=== PATIENT | male | born 1955 | race Caucasian/White ===

== ENCOUNTER → 2016-08-04 | Outpatient (CLI) | payer BC ==
[2016-08-04 12:59] LABS: Non-African American GFR(MDRD) >60 (>60 ml/min/1.73 sqM)
--- NOTE | 2016-08-04 13:56 | MR ---
EXAMINATION TYPE: MR brain wo/w con DATE OF EXAM: 08/04/2016 1:42 PM COMPARISON: NONE HISTORY: melanoma of lower back CONTRAST: Patient received 15 mL intravenous MultiHance gadolinium contrast. Multiplanar and multispin-echo imaging of the brain was performed . Pre and post contrast enhanced i mages are obtained. The ventricles, basal cisterns and sulci overlying the cerebral convexities are minimally enlarged. There is evidence of mild periventricular white matter ischemic demyelination. Focal globular T2 sig nal abnormality left frontal lobe measuring 7 mm as well as additional smaller focal T2 abnormalities within the left centrum semioval bilaterally. One or 2 small lesions right centrum semiovale and cor seema radiata. The findings are nonspecific and may reflect chronic small vessel ischemic change, seque la of the chronic migraine headaches, Lyme's disease as well as vasculitis. Demyelination is consider ed less likely although not entirely excluded. Remote deep white matter insults are also noted. No acute edema is seen on diffusion weighted imaging. There is no evidence for midline shift or mass effect. Acute intracranial hemorrhage or extra-axial collection is not evident. No enhancing lesions are seen. The paranasal sinuses and mastoid air cells are well-aerated. IMPRESSION: 1. No enhancing lesions are identified. 2. Several scattered T2 lesions are nonspecific.
== END | disposition home or self-care (01) ==
LOC: RADMRIMAIN 12:29
PROVIDERS: ATTEND Internal Medicine
DX: M89.9 Disorder of bone, unspecified (principal); Z85.820 Personal history of malignant melanoma of skin
CPT/HCPCS: 82565; 36415; 70553; A9577

== ENCOUNTER → 2016-08-09 | Outpatient (CLI) | payer BC ==
--- NOTE | 2016-08-10 13:35 | PE ---
Nuclear medicine PET/CT HISTORY: Melanoma Patient received 10.6 mCi F-18 FDG intravenously. Delayed scanning was performed through the whole ju dy. Correlation to brain MRI 04 August 2016 FINDINGS: Head and neck: No evident mass or adenopathy. No suspicious hypermetabolic uptake. CHEST: There is no lung mass. No mediastinal adenopathy. No pleural effusion. At the level of the ski n along the lateral chest margin on the right minimal thickening may be present, mild hypermetabolic uptake measuring approximately SUV 3 of questionable clinical significance, correlate clinically. Abdomen pelvis: No retroperitoneal adenopathy. No evident liver mass. Within the medial aspect of the gluteal soft tissues there is a focal hypermetabolic areas at the level of the scan SUV 10.6, no und erlying corresponding abnormality, correlate clinically. Lower extremities: Unremarkable IMPRESSION: Correlate for possible skin anomalies at the medial aspect of the gluteal soft tissues, a long the skin of the right chest as described. Question whether these foci may be artifactual.
== END | disposition home or self-care (01) ==
LOC: RADPETMAIN 11:14
PROVIDERS: ATTEND Internal Medicine
DX: C43.59 Malignant melanoma of other part of trunk (principal)
CPT/HCPCS: 78816; A9552

== ENCOUNTER 2017-02-06 11:52 | Day surgery (SDC) | payer BC ==
[2017-02-06 12:23] VITALS: RESP 14; TEMP 98.4
[2017-02-06 13:03] VITALS: BP 134/85; PULSE 79
--- NOTE | 2017-02-06 13:46 | US ---
ULTRASOUND GUIDED CORE BIOPSY LEFT GROIN MASS: CLINICAL HISTORY: Left groin mass FINDINGS: The procedure was explained to the patient. The risks, complications, benefits and alternatives were discussed and any questions were answered. Informed consent was obtained. Patient was placed supin e on the ultrasound table and prepped and draped in the usual sterile fashion. Utilizing a 18 gauge needle, two passes were made into the left groin mass. Patient was stable throughout the procedure. Pathology is pending. All elements of maximal barrier technique were utilized. IMPRESSION: 1. Successful ultrasound guided biopsy left groin mass.
== END 2017-02-06 13:14 | disposition home or self-care (01) ==
LOC: RADPROMAIN 11:52
PROVIDERS: ATTEND Internal Medicine Hematology & Oncology
DX: C43.9 Malignant melanoma of skin, unspecified (principal); C79.2 Secondary malignant neoplasm of skin
CPT/HCPCS: 20206; 76942; 88305; 88341; 88342

== ENCOUNTER → 2017-02-07 | Outpatient (CLI) | payer BC ==
--- NOTE | 2017-02-09 07:51 | PE ---
EXAMINATION TYPE: PET CT fusion whole body DATE OF EXAM: 02/07/2017 COMPARISON: Prior PET/CT August 04, 2016 HISTORY: Malignant melanoma progress study after diagnosed surgically July 2016 from nose. TECHNIQUE: Following the intravenous administration of 15.71 mCi of F-18 FDG, whole body images are performed from the top of skull to the feet including toes. Images are reviewed on the computer in t he coronal, axial, and sagittal planes. Reconstructed rotating images are created on independent wor kstation and reviewed on the computer. A CT is performed in conjunction with the PET scan. SCAN: Subsequent Scan FINDINGS: HEAD AND NECK: No suspicious hypermetabolic uptake is seen in the cranial soft tissues of the neck. CHEST, MEDIASTINUM, AND HILAR REGION: No suspicious hypermetabolic uptake is seen in the thorax. ABDOMEN AND PELVIS: There are 2-3 new suspicious subcentimeter hypodense hypermetabolic foci in the l iver, one is faint right hepatic dome anteriorly on axial image 149 ,Second is more suspicious periph dixon right hepatic lobe on axial image 169 Max SUV is 8.06, third is also more suspicious near gallbla dder fossa on image 178 Max SUV is 7.15. There is new abnormal hypermetabolic uptake in left distal external iliac lymph node which is enlarge d in size measuring 3.6 x 2.7 cm on axial image 245 with max SUV of 16.83. There is additional abnorm al lymph node anterior to this measuring 1.7 x 1.2 cm on axial image 241 with max SUV of 14.6. OSSEOUS STRUCTURES: No suspicious hypermetabolic uptake is seen in osseous structures. LOWER EXTREMITIES: There is nonspecific slightly suspicious right groin lymph node measuring 1.0 x 1. 0 cm on axial image 252 with increased hypermetabolic uptake, max SUV is 6.36. Surgical clips at left groin region are redemonstrated. At this level there is new oval hypermetaboli c lesion or adenopathy measuring 2.8 x 2.6 cm on axial image 263 with max SUV of 20.2. Inferior media l to this there is 2.5 x 2.2 cm round hypermetabolic lesion on axial image 280 with max SUV of 19.16s . Remainder of lower extremities show no suspicious hypermetabolic uptake OTHER CT: Coronary artery calcification is present which is noted marker for coronary artery disease . Bilateral PARS defects L5 level are seen with grade 1 anterolisthesis of L5 on S1 moderate disc space narrowing and spurring at this level seen. Remainder thoracic spine shows diffuse spurring. IMPRESSION: Neoplastic recurrence is present with local recurrence left groin at site of prior surgic al change, there is extension into distal left pelvic or external iliac chain adenopathy, there are s uspected early hepatic metastatic lesions as detailed above. Right groin adenopathy or involvement ca nnot be excluded.
== END ==
LOC: RADPETMAIN 10:28
PROVIDERS: ATTEND Internal Medicine Hematology & Oncology
DX: C43.59 Malignant melanoma of other part of trunk (principal)
CPT/HCPCS: 78816; A9552

== ENCOUNTER → 2017-02-11 | Outpatient (CLI) | payer BC ==
--- NOTE | 2017-02-11 09:44 | MR ---
EXAMINATION TYPE: MR brain wo/w con DATE OF EXAM: 02/11/2017 COMPARISON: MR brain dated 08/04/2016. HISTORY: Malignant melanoma TECHNIQUE: Multiplanar, multisequence images of the brain and brainstem is performed without and with IV contras t, utilizing 7.5 mL intravenous Gadavist . FINDINGS: Diffusion weighted images demonstrate no evidence of a recent infarct or other diffusion ab normality. There is no extra-axial fluid collection. The ventricular system and cisternal spaces are normal in size and appearance. The brain volume is age appropriate. Midline structures demonstrate normal morphology. The craniocervical junction appears within normal limits. Enhancing intracranial metastatic lesion is seen with surrounding T2/FLAIR hyperintense vasogenic kiesha ma. The first is located within the posterior right temporal lobe on series 501 image 11, coronal ser ies 603 image 26 and series 602 image 9 measuring 5 x 5 x 4 mm Additional questionable lesion within the anterior right temporal lobe on the same image has no appreciable vasogenic edema and measures 4 mm. Numerous scattered other areas of T2/FLAIR hyperintensity are seen within the subcortical and periven tricular white matter the largest in the left frontal lobe measuring 7 mm unchanged from the exam of 08/04/2016 with no enhancement. No other areas of abnormal enhancement are seen to suggest other sites of intracranial metastasis. The dural venous sinuses appear patent. The visualized sinuses are clear and the globes are intact. Mild mucosal thickening is seen within the ethmoid sinuses. Orbits are un remarkable. IMPRESSION: 1. Solitary 5 x 5 x 4 cm right posterior temporal lobe fed of intracranial metastasis with surroundin g vasogenic edema. Additional questionable 4 mm anterior right temporal lobe lesion is seen without v asogenic edema. 2. Unchanged nonspecific white matter changes, likely on the basis of chronic microangiopathy, with n o enhancement.
== END | disposition home or self-care (01) ==
LOC: RADMRIMAIN 06:44
PROVIDERS: ATTEND Internal Medicine Hematology & Oncology
DX: C43.59 Malignant melanoma of other part of trunk (principal); C79.31 Secondary malignant neoplasm of brain; R90.82 White matter disease, unspecified
CPT/HCPCS: 70553; A9581

== ENCOUNTER 2017-11-29 09:51 | Emergency (ER) | payer BC ==
[2017-11-29 09:58] VITALS: TEMP 98.2
[2017-11-29] MEDS ORDERED: SODIUM CHLORIDE 0.9% 500 ML IV STA (10:13)
[2017-11-29] MEDS ORDERED: HYDROCORTISONE SUCCINATE 100 MG/2 ML VIAL IV STA (10:14)
--- NOTE | 2017-11-29 10:16 | ED ---
General Adult HPI - General Chief complaint: Weakness Stated complaint: LOW ENERGY, APPETITE, Ca PATIENT Time Seen by Provider: 11/29/17 09:55 Source: patient, RN notes reviewed Mode of arrival: ambulatory Limitations: no limitations - History of Present Illness Initial comments: This is a 62-year-old male with past medical history significant for melanoma stage IV. Patient is on immunotherapy at this time for that. Patient also states she has adrenal insufficiency. Patient states since he has lost his appetite has been a lot weaker and more fatigued. Patient states she also sat a headache on the left side of his head a little bit worse and this typical migraine. Patient states she's also some blurred vision out of the left eye which he thinks he might of had with other migraines but is not sure. Patient denies any fever or chills. Patient denies any chest pain palpitations difficulty breathing shortness of breath. Patient denies any cough. Patient denies abdominal pain patient denies any nausea vomiting diarrhea. Patient denies any new lesions or rashes. Patient denies any erythematous areas of any of his extremities or body. Patient denies any swelling to his legs or calf tenderness. Patient denies any dysuria hematuria urinary frequency. Patient did mention he was a little off balance as well. - Related Data Home Medications Medication Instructions Recorded Confirmed Acetaminophen [Tylenol] 500 mg PO Q4-6H PRN 02/03/17 02/03/17 Flaxseed Oil [Logan-3 Flaxseed Oil] 1,000 mg PO Q2D 02/03/17 02/06/17 Magnesium Oxide [Mag-Ox] 500 mg PO Q2D 02/03/17 02/06/17 Multivitamin [Men's Multi-Vitamin] 1 each PO DAILY 02/03/17 02/06/17 Vitamin B Complex 1 each PO DAILY 02/03/17 02/06/17 Allergies Allergy/AdvReac Type Severity Reaction Status Date / Time No Known Allergies Allergy Verified 11/29/17 09:58 Review of Systems ROS Statement: Those systems with pertinent positive or pertinent negative responses have been documented in the HPI. ROS Other: All systems not noted in ROS Statement are negative. Past Medical History Past Medical History: Cancer Additional Past Medical History / Comment(s): melanoma, adrenal insufficiency History of Any Multi-Drug Resistant Organisms: None Reported Past Surgical History: Adenoidectomy, Tonsillectomy Additional Past Surgical History / Comment(s): surgery to remove melanoma on mid -back and nose earlier this year Past Anesthesia/Blood Transfusion Reactions: No Reported Reaction Past Psychological History: No Psychological Hx Reported Smoking Status: Never smoker Past Alcohol Use History: Occasional Past Drug Use History: None Reported - Past Family History Mother Family Medical History: Thyroid Disorder Additional Family Medical History / Comment(s): thyroid cancer Father Additional Family Medical History / Comment(s): colitis General Exam - General Exam Comments Initial Comments: GENERAL: Patient is well-developed and well-nourished. Patient is nontoxic and well- hydrated and is in no acute distress. ENT: Neck is soft and supple. No significant lymphadenopathy is noted. Oropharynx is clear. Moist mucous membranes. Neck has full range of motion without eliciting any pain. EYES: The sclera were anicteric and conjunctiva were pink and moist. Extraocular movements were intact and pupils were equal round and reactive to light. Eyelids were unremarkable. PULMONARY: Unlabored respirations. Good breath sounds bilaterally. No audible rales rhonchi or wheezing was noted. CARDIOVASCULAR: There is a regular rate and rhythm without any murmurs gallops or rubs. ABDOMEN: Soft and nontender with normal bowel sounds. No palpable organomegaly was noted. There is no palpable pulsatile mass. SKIN: Skin is clear with no lesions or rashes and otherwise unremarkable. NEUROLOGIC: Patient is alert and oriented x3. Cranial nerves II through XII are grossly intact. Motor and sensory are also intact. Normal speech, volume and content. Symmetrical smile. MUSCULOSKELETAL: Normal extremities with adequate strength and full range of motion. No lower extremity swelling or edema. No calf tenderness. LYMPHATICS: No significant lymphadenopathy is noted PSYCHIATRIC: Normal psychiatric evaluation. Limitations: no limitations Course Vital Signs 11/29/17 11/29/17 09:54 11:08 Temperature 98.2 F Pulse Rate 89 77 Respiratory 18 16 Rate Blood Pressure 149/91 154/94 O2 Sat by Pulse 97 98 Oximetry Medical Decision Making - Medical Decision Making EKG shows normal sinus rhythm at 80 bpm MA interval is on a 38 QRS 70 QT interval 370 QTC is 435. Patient's EKG shows no ST segment elevation or depression no T-wave abnormalities Chest x-ray shows no acute abnormality. CT of the brain shows no acute abnormality however in the subcutaneous tissue of the scalp there is 2 nodules one on the left frontal and left temporal region. I discussed the results of the computed tomography scan and labs with the patient I suggested we admit him at this facility he stated he would rather go home and call his oncologist at home tomorrow and follow-up with him. Patient states at this point in time he just feels tired overall and was fine with going home. - Lab Data Result diagrams: 11/29/17 10:24 11/29/17 10:24 Lab Results 11/29/17 11/29/17 11/29/17 Range/Units 10:24 10:24 10:24 WBC 12.2 H (3.8-10.6) k/uL RBC 5.72 (4.30-5.90) m/uL Hgb 16.7 (13.0-17.5) gm/dL Hct 50.3 (39.0-53.0) % MCV 87.9 (80.0-100.0) fL MCH 29.3 (25.0-35.0) pg MCHC 33.3 (31.0-37.0) g/dL RDW 13.0 (11.5-15.5) % Plt Count 356 (150-450) k/uL Neutrophils % 71 % Lymphocytes % 18 % Monocytes % 9 % Eosinophils % 1 % Basophils % 0 % Neutrophils # 8.6 H (1.3-7.7) k/uL Lymphocytes # 2.2 (1.0-4.8) k/uL Monocytes # 1.1 H (0-1.0) k/uL Eosinophils # 0.1 (0-0.7) k/uL Basophils # 0.0 (0-0.2) k/uL PT (9.0-12.0) sec INR (<1.2) APTT (22.0-30.0) sec Sodium 139 (137-145) mmol/L Potassium 3.6 (3.5-5.1) mmol/L Chloride 99 (98-107) mmol/L Carbon Dioxide 27 (22-30) mmol/L Anion Gap 13 mmol/L BUN 21 H (9-20) mg/dL Creatinine 0.82 (0.66-1.25) mg/dL Est GFR (CKD-EPI)AfAm >90 (>60 ml/min/1.73 sqM) Est GFR (CKD-EPI)NonAf >90 (>60 ml/min/1.73 sqM) Glucose 111 H (74-99) mg/dL Plasma Lactic Acid Didier (0.7-2.0) mmol/L Calcium 9.5 (8.4-10.2) mg/dL Magnesium 2.0 (1.6-2.3) mg/dL Total Bilirubin 0.6 (0.2-1.3) mg/dL AST 119 H (17-59) U/L ALT 180 H (21-72) U/L Alkaline Phosphatase 63 (38-126) U/L Total Creatine Kinase 29 L (55-170) U/L CK-MB (CK-2) <0.2 (0.0-2.4) ng/mL CK-MB (CK-2) Rel Index Troponin I <0.012 (0.000-0.034) ng/mL Total Protein 6.6 (6.3-8.2) g/dL Albumin 4.0 (3.5-5.0) g/dL TSH 1.570 (0.465-4.680) mIU/L Free T4 1.19 (0.78-2.19) ng/dL Urine Color Urine Appearance (Clear) Urine pH (5.0-8.0) Ur Specific [place] (1.001-1.035) Urine Protein (Negative) Urine Glucose (UA) (Negative) Urine Ketones (Negative) Urine Blood (Negative) Urine Nitrite (Negative) Urine Bilirubin (Negative) Urine Urobilinogen (<2.0) mg/dL Ur Leukocyte Esterase (Negative) 11/29/17 11/29/17 11/29/17 Range/Units 10:24 10:24 11:16 WBC (3.8-10.6) k/uL RBC (4.30-5.90) m/uL Hgb (13.0-17.5) gm/dL Hct (39.0-53.0) % MCV (80.0-100.0) fL MCH (25.0-35.0) pg MCHC (31.0-37.0) g/dL RDW (11.5-15.5) % Plt Count (150-450) k/uL Neutrophils % % Lymphocytes % % Monocytes % % Eosinophils % % Basophils % % Neutrophils # (1.3-7.7) k/uL Lymphocytes # (1.0-4.8) k/uL Monocytes # (0-1.0) k/uL Eosinophils # (0-0.7) k/uL Basophils # (0-0.2) k/uL PT 11.0 (9.0-12.0) sec INR 1.1 (<1.2) APTT 24.6 (22.0-30.0) sec Sodium (137-145) mmol/L Potassium (3.5-5.1) mmol/L Chloride (98-107) mmol/L Carbon Dioxide (22-30) mmol/L Anion Gap mmol/L BUN (9-20) mg/dL Creatinine (0.66-1.25) mg/dL Est GFR (CKD-EPI)AfAm (>60 ml/min/1.73 sqM) Est GFR (CKD-EPI)NonAf (>60 ml/min/1.73 sqM) Glucose (74-99) mg/dL Plasma Lactic Acid Didier 2.1 H* (0.7-2.0) mmol/L Calcium (8.4-10.2) mg/dL Magnesium (1.6-2.3) mg/dL Total Bilirubin (0.2-1.3) mg/dL AST (17-59) U/L ALT (21-72) U/L Alkaline Phosphatase (38-126) U/L Total Creatine Kinase (55-170) U/L CK-MB (CK-2) (0.0-2.4) ng/mL CK-MB (CK-2) Rel Index Troponin I (0.000-0.034) ng/mL Total Protein (6.3-8.2) g/dL Albumin (3.5-5.0) g/dL TSH (0.465-4.680) mIU/L Free T4 (0.78-2.19) ng/dL Urine Color Yellow Urine Appearance Clear (Clear) Urine pH 6.0 (5.0-8.0) Ur Specific [place] 1.018 (1.001-1.035) Urine Protein Negative (Negative) Urine Glucose (UA) Negative (Negative) Urine Ketones Negative (Negative) Urine Blood Negative (Negative) Urine Nitrite Negative (Negative) Urine Bilirubin Negative (Negative) Urine Urobilinogen <2.0 (<2.0) mg/dL Ur Leukocyte Esterase Negative (Negative) Disposition Clinical Impression: Generalized weakness Disposition: HOME SELF-CARE Instructions: Weakness (ED) Is patient prescribed a controlled substance at d/c from ED?: No Referrals: Frankie Mariee MD [Primary Care Provider] - 1-2 days Time of Disposition: 11:45
[2017-11-29 10:37] LABS: Basophils % (A) 0 %; Eosinophils # (A) 0.1 k/uL (0-0.7); Eosinophils % (A) 1 %; HCT 50.3 % (39.0-53.0); HGB 16.7 gm/dL (13.0-17.5); Lymphocytes # (A) 2.2 k/uL (1.0-4.8); Lymphocytes % (A) 18 %; MCH 29.3 pg (25.0-35.0); MCHC 33.3 g/dL (31.0-37.0); MCV 87.9 fL (80.0-100.0); Mean Platelet Volume 7.2; Monocytes # (A) 1.1 k/uL (0-1.0); Monocytes % (A) 9 %; Neutrophils # (A) 8.6 k/uL (1.3-7.7); Neutrophils % (A) 71 %; Platelet Count 356 k/uL (150-450); RBC 5.72 m/uL (4.30-5.90); WBC 12.2 k/uL (3.8-10.6)
[2017-11-29 10:43] LABS: INR 1.1 (<1.2); Partial Thromboplastin Time 24.6 sec (22.0-30.0)
[2017-11-29 10:47] LABS: ALT 180 U/L (21-72); AST 119 U/L (17-59); Alkaline Phosphatase 63 U/L (38-126); Anion Gap 13 mmol/L; Blood Urea Nitrogen 21 mg/dL (9-20); Calcium 9.5 mg/dL (8.4-10.2); Carbon Dioxide 27 mmol/L (22-30); Chloride 99 mmol/L (98-107); Glucose 111 mg/dL (74-99); Potassium 3.6 mmol/L (3.5-5.1); Sodium 139 mmol/L (137-145); Total Bilirubin 0.6 mg/dL (0.2-1.3); Total Protein 6.6 g/dL (6.3-8.2)
--- NOTE | 2017-11-29 10:51 | CT ---
EXAMINATION TYPE: CT brain wo con DATE OF EXAM: 11/29/2017 COMPARISON: NONE HISTORY: Weakness CT DLP: 862.50 mGycm Automated exposure control for dose reduction was used. FINDINGS: There are mild, generalized changes of sulcal prominence and ventriculomegaly, compatible with atroph ic change. There is diffuse periventricular white matter lucency, compatible with chronic white matte r ischemic change. There is no acute focal lesion, mass effect or midline shift identified. I do not see evidence of intracranial blood. There is a 6 mm subcutaneous nodule in the left frontal region which may represent a sebaceous cyst. In light of this patient's history of melanoma, metastasis cannot be excluded. There is an additional soft tissue nodule more superiorly in the left frontal region measuring 5 mm. Visualized portions of the paranasal sinuses are clear. The bony calvarium is intact. IMPRESSION: 1. NO ACUTE INTRACRANIAL ABNORMALITY. 2. MILD DEGENERATIVE CHANGE. 3. SCATTERED SUBCUTANEOUS NODULES. PLEASE CORRELATE FOR METASTASES.
--- NOTE | 2017-11-29 10:52 | XR ---
EXAMINATION TYPE: XR chest 2V DATE OF EXAM: 11/29/2017 HISTORY: Weakness. REFERENCE: NONE. FINDINGS: The lungs are clear. Pleural spaces are clear. Heart size is normal. There is degenerative hypertrophic spondylosis within the spine. IMPRESSION: NO ACUTE CARDIOTHORACIC ABNORMALITY.
[2017-11-29 11:00] LABS: Creatine Kinase 29 U/L (55-170)
[2017-11-29] MEDS ORDERED: SODIUM CHLORIDE 0.9% 500 ML IV ONE (11:00)
[2017-11-29 11:02] LABS: T4, Free (Free Thyroxine) 1.19 ng/dL (0.78-2.19)
[2017-11-29] MEDS ORDERED: ASPIRIN-ACET-CAFF 250-250-65MG 1 EACH TAB PO STA (11:03)
[2017-11-29 11:11] LABS: Creatine Kinase MB <0.2 ng/mL (0.0-2.4); Troponin I <0.012 ng/mL (0.000-0.034)
[2017-11-29 11:25] LABS: Appearance,Urine Clear (Clear); Bilirubin,Urine Negative (Negative); Blood,Urine Negative (Negative); Color,Urine Yellow; Glucose,Urine (UA) Negative (Negative); Ketones,Urine Negative (Negative); Leukocyte Esterase,Urine Negative (Negative); Nitrite,Urine Negative (Negative); Protein,Urine Negative (Negative); Specific Gravity,Urine 1.018 (1.001-1.035); Urobilinogen,Urine <2.0 mg/dL (<2.0)
[2017-11-29] MEDS ORDERED: KETOROLAC 60 MG/2 ML VIAL IVP STA (11:47)
[2017-11-29] MEDS ORDERED: hydrALAZINE HCL 20 MG/ML 1 ML VIAL IVP STA (12:16)
[2017-11-29 12:19] VITALS: RESP 18
[2017-11-29 12:41] VITALS: BP 168/89; PULSE 90
== END 2017-11-29 12:52 | disposition home or self-care (01) ==
LOC: EC 09:51
DX: R53.1 Weakness (principal); R63.0 Anorexia; C43.9 Malignant melanoma of skin, unspecified; Z98.890 Other specified postprocedural states; Z79.899 Other long term (current) drug therapy
CPT/HCPCS: 36415; 93005; 84439; 80053; 82550; 82553; 83605; 83735; 84443; 84484; 85025; 85610; 85730; 81003; 71046; 70450; 99285; 96374; 96375 ×2; 96361 ×2; J0360; J1720; J1885

== ENCOUNTER 2018-02-12 14:15 | Emergency (ER) | payer BC ==
[2018-02-12] MEDS ORDERED: SODIUM CHLORIDE 0.9% 1,000 ML IV STA (16:35)
--- NOTE | 2018-02-12 16:48 | ED ---
General Adult HPI - General Chief complaint: Weakness Stated complaint: rash on mouth, allergic reaction Source: patient Mode of arrival: ambulatory Limitations: no limitations - History of Present Illness Initial comments: Dictation was produced using [employer] dictation software. please excuse any grammatical, word or spelling errors. Chief Complaint: 62-year-old male status post treatment for stage IV metastatic melanoma presents with 2 days of generalized weakness. History of Present Illness: Patient is 62-year-old male presents with generalized weakness. He had completed therapy for malignant melanoma. Patient complaint this [facility]. Patient hasn't had a treatment in several weeks. Was recently seen by the dentist where he was being evaluated for hard palate lesions. He was scheduled by his dentist to follow- up with oral surgeon to address these lesions. Patient has been feeling generally unwell. Denies any fever. Does feel chills once in all. Denies any cough, shortness of breath. No nausea vomiting or diarrhea. Patient knows that he has lesions to the head, liver, lymph nodes. Primary lesion was from his back The ROS documented in this emergency department record has been reviewed and confirmed by me. Those systems with pertinent positive or negative responses have been documented in the HPI. All other systems are other negative and/or noncontributory. - Related Data Home Medications Medication Instructions Recorded Confirmed Multivitamin [Men's Multi-Vitamin] 1 each PO DAILY 02/03/17 02/12/18 Ibuprofen [Motrin Ib] 400 mg PO Q6H 02/12/18 02/12/18 Omeprazole 20 mg PO DAILY 02/12/18 02/12/18 SUMAtriptan SUCCINATE [Imitrex] 50 mg PO ONCE PRN 02/12/18 02/12/18 predniSONE 10 mg PO DAILY 02/12/18 02/12/18 Previous Rx's Medication Instructions Recorded Acyclovir 400 mg PO TID 5 Days #15 tablet 02/12/18 Allergies Allergy/AdvReac Type Severity Reaction Status Date / Time No Known Allergies Allergy Verified 02/12/18 16:26 Review of Systems ROS Statement: Those systems with pertinent positive or pertinent negative responses have been documented in the HPI. ROS Other: All systems not noted in ROS Statement are negative. Past Medical History Past Medical History: Cancer Additional Past Medical History / Comment(s): melanoma, adrenal insufficiency History of Any Multi-Drug Resistant Organisms: None Reported Past Surgical History: Adenoidectomy, Tonsillectomy Additional Past Surgical History / Comment(s): surgery to remove melanoma on mid -back and nose earlier this year Past Anesthesia/Blood Transfusion Reactions: No Reported Reaction Past Psychological History: No Psychological Hx Reported Smoking Status: Never smoker Past Alcohol Use History: Occasional Past Drug Use History: None Reported - Past Family History Mother Family Medical History: Thyroid Disorder Additional Family Medical History / Comment(s): thyroid cancer Father Additional Family Medical History / Comment(s): colitis General Exam - General Exam Comments Initial Comments: PHYSICAL EXAM: General Impression: Alert and oriented x3, not in acute distress HEENT: Normocephalic atraumatic, extra-ocular movements intact, pupils equal and reactive to light bilaterally, mucous membranes moist. Cardiovascular: Heart regular rate and rhythm, S1&S2 audible, no murmurs, rubs or gallops Chest: Lungs clear to auscultation bilaterally, no rhonchi, no wheeze, no rales Abdomen: Bowel sounds present, abdomen soft, non-tender, non-distended, no organomegaly Musculoskeletal: Pulses present and equal in all extremities, no peripheral edema Motor: Power 5/5 bilaterally, no focal deficits noted Neurological: CN II-XII grossly intact, no focal motor or sensory deficits noted Skin: Intact with no visualized rashes Psych: Normal affect and mood Limitations: no limitations Course Vital Signs 02/12/18 02/12/18 14:46 17:41 Temperature 100.3 F H 100 F H Pulse Rate 103 H 87 Respiratory 18 16 Rate Blood Pressure 123/74 144/77 O2 Sat by Pulse 97 99 Oximetry Medical Decision Making - Medical Decision Making ED course: 22-year-old male past medical history of mental malignant melanoma presents with generalized weakness. Vital signs upon arrival shows heart rate of 103, temperature 100.3, rest of labs unremarkable.Laboratory evaluation obtained. CBC unremarkable, coag panel unremarkable. Metabolic panel is unremarkable. Urinalysis shows 3+ ketones. Patient given intravenous fluids and headache medications. He is observed in emergency department with no changes in medical status. Clinical presentation is suspicious for viral herpetic infection. Given the patient's history of cancer likely immunosuppressed causing this outbreak. Patient started on antiviral medications. Patient reevaluated after intervention with improvement of symptoms. Discussed with patient that there is very low clinical suspicion that his symptoms of weakness is from a serious bacterial infection. Pending blood cultures and urine cultures. Patient started on acyclovir. Advised follow-up with primary care physician on Thursday. He is understandable and agreeable with that plan. - Lab Data Result diagrams: 02/12/18 17:13 02/12/18 17:13 Lab Results 02/12/18 02/12/18 02/12/18 Range/Units 17:13 17:13 17:13 WBC 10.6 (3.8-10.6) k/uL RBC 5.53 (4.30-5.90) m/uL Hgb 16.2 (13.0-17.5) gm/dL Hct 49.3 (39.0-53.0) % MCV 89.0 (80.0-100.0) fL MCH 29.3 (25.0-35.0) pg MCHC 32.9 (31.0-37.0) g/dL RDW 14.0 (11.5-15.5) % Plt Count 226 (150-450) k/uL Neutrophils % 86 % Lymphocytes % 5 % Monocytes % 7 % Eosinophils % 0 % Basophils % 0 % Neutrophils # 9.1 H (1.3-7.7) k/uL Lymphocytes # 0.5 L (1.0-4.8) k/uL Monocytes # 0.7 (0-1.0) k/uL Eosinophils # 0.1 (0-0.7) k/uL Basophils # 0.0 (0-0.2) k/uL PT (9.0-12.0) sec INR (<1.2) APTT (22.0-30.0) sec Sodium 136 L (137-145) mmol/L Potassium 5.0 (3.5-5.1) mmol/L Chloride 99 (98-107) mmol/L Carbon Dioxide 28 (22-30) mmol/L Anion Gap 9 mmol/L BUN 22 H (9-20) mg/dL Creatinine 0.82 (0.66-1.25) mg/dL Est GFR (CKD-EPI)AfAm >90 (>60 ml/min/1.73 sqM) Est GFR (CKD-EPI)NonAf >90 (>60 ml/min/1.73 sqM) Glucose 90 (74-99) mg/dL Plasma Lactic Acid Didier (0.7-2.0) mmol/L Calcium 9.1 (8.4-10.2) mg/dL Phosphorus 3.9 (2.5-4.5) mg/dL Magnesium 1.8 (1.6-2.3) mg/dL Total Bilirubin 0.9 (0.2-1.3) mg/dL AST 77 H (17-59) U/L ALT 95 H (21-72) U/L Alkaline Phosphatase 74 (38-126) U/L Total Creatine Kinase 35 L (55-170) U/L CK-MB (CK-2) 0.3 (0.0-2.4) ng/mL CK-MB (CK-2) Rel Index 0.9 Troponin I <0.012 (0.000-0.034) ng/mL Total Protein 6.7 (6.3-8.2) g/dL Albumin 4.0 (3.5-5.0) g/dL Urine Color Urine Appearance (Clear) Urine pH (5.0-8.0) Ur Specific [place] (1.001-1.035) Urine Protein (Negative) Urine Glucose (UA) (Negative) Urine Ketones (Negative) Urine Blood (Negative) Urine Nitrite (Negative) Urine Bilirubin (Negative) Urine Urobilinogen (<2.0) mg/dL Ur Leukocyte Esterase (Negative) 02/12/18 02/12/18 02/12/18 Range/Units 17:13 17:13 17:13 WBC (3.8-10.6) k/uL RBC (4.30-5.90) m/uL Hgb (13.0-17.5) gm/dL Hct (39.0-53.0) % MCV (80.0-100.0) fL MCH (25.0-35.0) pg MCHC (31.0-37.0) g/dL RDW (11.5-15.5) % Plt Count (150-450) k/uL Neutrophils % % Lymphocytes % % Monocytes % % Eosinophils % % Basophils % % Neutrophils # (1.3-7.7) k/uL Lymphocytes # (1.0-4.8) k/uL Monocytes # (0-1.0) k/uL Eosinophils # (0-0.7) k/uL Basophils # (0-0.2) k/uL PT 11.2 (9.0-12.0) sec INR 1.2 H (<1.2) APTT 25.6 (22.0-30.0) sec Sodium (137-145) mmol/L Potassium (3.5-5.1) mmol/L Chloride (98-107) mmol/L Carbon Dioxide (22-30) mmol/L Anion Gap mmol/L BUN (9-20) mg/dL Creatinine (0.66-1.25) mg/dL Est GFR (CKD-EPI)AfAm (>60 ml/min/1.73 sqM) Est GFR (CKD-EPI)NonAf (>60 ml/min/1.73 sqM) Glucose (74-99) mg/dL Plasma Lactic Acid Didier 1.3 (0.7-2.0) mmol/L Calcium (8.4-10.2) mg/dL Phosphorus (2.5-4.5) mg/dL Magnesium (1.6-2.3) mg/dL Total Bilirubin (0.2-1.3) mg/dL AST (17-59) U/L ALT (21-72) U/L Alkaline Phosphatase (38-126) U/L Total Creatine Kinase (55-170) U/L CK-MB (CK-2) (0.0-2.4) ng/mL CK-MB (CK-2) Rel Index Troponin I (0.000-0.034) ng/mL Total Protein (6.3-8.2) g/dL Albumin (3.5-5.0) g/dL Urine Color Yellow Urine Appearance Clear (Clear) Urine pH 5.5 (5.0-8.0) Ur Specific [place] 1.026 (1.001-1.035) Urine Protein Trace H (Negative) Urine Glucose (UA) Negative (Negative) Urine Ketones 3+ H (Negative) Urine Blood Negative (Negative) Urine Nitrite Negative (Negative) Urine Bilirubin Negative (Negative) Urine Urobilinogen <2.0 (<2.0) mg/dL Ur Leukocyte Esterase Negative (Negative) Disposition Clinical Impression: Herpes dermatitis Disposition: HOME SELF-CARE Condition: Good Prescriptions: Acyclovir 400 mg PO TID 5 Days #15 tablet Is patient prescribed a controlled substance at d/c from ED?: No Referrals: Frankie Mariee MD [Primary Care Provider] - 1-2 days Time of Disposition: 18:44
[2018-02-12] MEDS ORDERED: SUMAtriptan SUCCINATE 25 MG TAB PO STA (17:06)
--- NOTE | 2018-02-12 17:34 | XR ---
EXAMINATION TYPE: XR chest 2V DATE OF EXAM: 02/12/2018 COMPARISON: 11/29/2017 HISTORY: Weakness TECHNIQUE: Frontal and lateral views of the chest are obtained. FINDINGS: Heart and mediastinum are normal. Lungs are clear. Diaphragm is normal. Bony thorax appear s normal. IMPRESSION: Normal chest. No change.
[2018-02-12 17:41] LABS: Appearance,Urine Clear (Clear); Bilirubin,Urine Negative (Negative); Blood,Urine Negative (Negative); Color,Urine Yellow; Glucose,Urine (UA) Negative (Negative); Ketones,Urine 3+ (Negative); Leukocyte Esterase,Urine Negative (Negative); Nitrite,Urine Negative (Negative); PH, Urine 5.5 (5.0-8.0); Protein,Urine Trace (Negative); Specific Gravity,Urine 1.026 (1.001-1.035); Urobilinogen,Urine <2.0 mg/dL (<2.0)
[2018-02-12 17:43] LABS: Basophils % (A) 0 %; Eosinophils # (A) 0.1 k/uL (0-0.7); Eosinophils % (A) 0 %; HCT 49.3 % (39.0-53.0); HGB 16.2 gm/dL (13.0-17.5); Lymphocytes # (A) 0.5 k/uL (1.0-4.8); Lymphocytes % (A) 5 %; MCH 29.3 pg (25.0-35.0); MCHC 32.9 g/dL (31.0-37.0); Mean Platelet Volume 7.3; Monocytes # (A) 0.7 k/uL (0-1.0); Monocytes % (A) 7 %; Neutrophils # (A) 9.1 k/uL (1.3-7.7); Neutrophils % (A) 86 %; Platelet Count 226 k/uL (150-450); RBC 5.53 m/uL (4.30-5.90); WBC 10.6 k/uL (3.8-10.6)
[2018-02-12 17:52] LABS: INR 1.2 (<1.2); Partial Thromboplastin Time 25.6 sec (22.0-30.0); Prothrombin Time 11.2 sec (9.0-12.0)
[2018-02-12 17:56] LABS: ALT 95 U/L (21-72); AST 77 U/L (17-59); Alkaline Phosphatase 74 U/L (38-126); Anion Gap 9 mmol/L; Blood Urea Nitrogen 22 mg/dL (9-20); Calcium 9.1 mg/dL (8.4-10.2); Carbon Dioxide 28 mmol/L (22-30); Chloride 99 mmol/L (98-107); Glucose 90 mg/dL (74-99); Magnesium 1.8 mg/dL (1.6-2.3); Phosphorus 3.9 mg/dL (2.5-4.5); Sodium 136 mmol/L (137-145); Total Bilirubin 0.9 mg/dL (0.2-1.3); Total Protein 6.7 g/dL (6.3-8.2)
[2018-02-12 18:07] LABS: Creatine Kinase 35 U/L (55-170)
[2018-02-12 18:20] LABS: Creatine Kinase MB 0.3 ng/mL (0.0-2.4); Troponin I <0.012 ng/mL (0.000-0.034)
[2018-02-12 19:14] VITALS: BP 137/83; PULSE 88; RESP 18; TEMP 98
== END 2018-02-12 19:14 | disposition home or self-care (01) ==
LOC: EC 14:15
DX: B00.89 Other herpesviral infection (principal); L30.9 Dermatitis, unspecified; Z79.899 Other long term (current) drug therapy; Z79.51 Long term (current) use of inhaled steroids; Z85.820 Personal history of malignant melanoma of skin
CPT/HCPCS: 36415; 71046; 80053; 81003; 82550; 82553; 83605; 83735; 84100; 84484; 85025; 85610; 85730; 87040; 87086; 93005; 96360; 99285

== ENCOUNTER → 2021-03-26 | Outpatient (CLI) | payer BC ==
[2021-03-26 15:46] LABS: T4, Free (Free Thyroxine) 1.18 ng/dL (0.800-1.800)
== END | disposition home or self-care (01) ==
LOC: LABWHC1 08:05
PROVIDERS: ATTEND Internal Medicine Endocrinology, Diabetes & Metabolism
DX: E27.40 Unspecified adrenocortical insufficiency (principal); R53.83 Other fatigue
CPT/HCPCS: 36415; 82024; 82533; 84439; 84443; 84481

== ENCOUNTER → 2021-08-21 | Outpatient (CLI) | payer BC ==
[2021-08-21 21:12] LABS: T4, Free (Free Thyroxine) 1.15 ng/dL (0.800-1.800)
[2021-08-22 19:36] LABS: ACTH <1.50 pg/mL (0.00-45.99)
== END | disposition home or self-care (01) ==
LOC: LABWHC1 11:40
PROVIDERS: ATTEND Internal Medicine Endocrinology, Diabetes & Metabolism
DX: E27.3 Drug-induced adrenocortical insufficiency (principal); E23.6 Other disorders of pituitary gland
CPT/HCPCS: 36415; 82024; 82533; 84439; 84443; 84480

== ENCOUNTER → 2022-02-18 | Outpatient (CLI) | payer MEDICARE | END | disposition home or self-care (01) | LOC: LABWHC1 11:50 | PROVIDERS: ATTEND Internal Medicine Endocrinology, Diabetes & Metabolism | DX: E27.3 Drug-induced adrenocortical insufficiency (principal) | CPT/HCPCS: 36415; 82024; 82533 ==

== ENCOUNTER → 2022-08-11 | Outpatient (CLI) | payer MEDICARE ==
[2022-08-11 15:30] LABS: Prolactin 13.4 ng/mL (2.100-17.700); T4, Free (Free Thyroxine) 1.23 ng/dL (0.800-1.800)
[2022-08-12 02:37] LABS: ACTH 2.3 pg/mL (0.00-45.99)
== END | disposition home or self-care (01) ==
LOC: LABWHC1 09:22
PROVIDERS: ATTEND Internal Medicine Endocrinology, Diabetes & Metabolism
DX: E27.3 Drug-induced adrenocortical insufficiency (principal); E23.6 Other disorders of pituitary gland
CPT/HCPCS: 36415; 82024; 82533; 84146; 84403; 84439; 84443; 84480

== ENCOUNTER → 2022-10-15 | Outpatient (CLI) | payer MEDICARE ==
[2022-10-15 15:24] LABS: Basophils # (A) 0.03 X 10*3/uL (0.00-0.10); Basophils % (A) 0.3 %; Eosinophils # (A) 0.36 X 10*3/uL (0.04-0.35); Eosinophils % (A) 3.4 %; HCT 47.4 % (39.6-50.0); HGB 15.5 g/dL (13.0-17.0); Immature Grans, Automated 0.4 %; Lymphocytes # (A) 1.48 X 10*3/uL (0.90-5.00); Lymphocytes % (A) 13.9 %; MCHC 32.7 g/dL (32.0-37.0); MCV 91.9 fL (80.0-97.0); Mean Platelet Volume 10.8 fL (9.5-12.2); Monocytes # (A) 0.86 X 10*3/uL (0.20-1.00); Monocytes % (A) 8.1 %; NRBC Per 100 WBC 0 /100 WBCS (0.0-0.0); Neutrophils # (A) 7.91 X 10*3/uL (1.80-7.70); Neutrophils % (A) 73.9 %; Platelet Count 317 X 10*3/uL (140-440); RBC 5.16 X 10*6/uL (4.40-5.60); RDW 13.7 % (11.5-14.5); WBC 10.68 X 10*3/uL (4.50-10.00)
[2022-10-15 16:02] LABS: ALT 13 U/L (10-49); AST 23 U/L (14-35); African American GFR (CKD) 89.4 (60.0-200.0); Albumin 4.3 g/dL (3.8-4.9); Albumin/Globulin Ratio 1.79 (1.60-3.17); Alkaline Phosphatase 74 U/L (41-126); BUN/Creat Ratio 18.22 Ratio (12.00-20.00); Blood Urea Nitrogen 18.4 mg/dL (9.0-27.0); Calcium 9.4 mg/dL (8.7-10.3); Carbon Dioxide 30.5 mmol/L (20.0-27.5); Chloride 104 mmol/L (96-109); Chol/HDL Ratio 2.73 Ratio; Globulin 2.4 g/dL (1.6-3.3); Glucose 90 mg/dL (70-110); LDL Cholesterol,Calculated 118.9 mg/dL (0.0-131.0); Non-African American GFR(CKD) 77.2 (60.0-200.0); Potassium 5.1 mmol/L (3.5-5.5); Sodium 142 mmol/L (135-145); Total Protein 6.7 g/dL (6.2-8.2)
== END | disposition home or self-care (01) ==
LOC: LABWHC1 08:57
PROVIDERS: ATTEND Internal Medicine Geriatric Medicine
DX: Z00.00 Encounter for general adult medical examination without abnormal findings (principal); N28.9 Disorder of kidney and ureter, unspecified; E78.2 Mixed hyperlipidemia; N40.1 Benign prostatic hyperplasia with lower urinary tract symptoms
CPT/HCPCS: 36415; 80053; 80061; 84153; 85025

== ENCOUNTER → 2023-09-16 | Outpatient (CLI) | payer MEDICARE, BC ==
[2023-09-16 15:29] LABS: ALT 19 U/L (10-49); AST 27 U/L (14-35); Albumin 4.4 g/dL (3.8-4.9); Albumin/Globulin Ratio 1.63 Ratio (1.60-3.17); Alkaline Phosphatase 78 U/L (41-126); Blood Urea Nitrogen 16.4 mg/dL (9.0-27.0); Calcium 9.1 mg/dL (8.7-10.3); Carbon Dioxide 28.2 mmol/L (21.6-31.8); Chloride 102 mmol/L (96-109); Globulin 2.7 g/dL (1.6-3.3); Glucose 73 mg/dL (70-110); Potassium 4.7 mmol/L (3.5-5.5); Sodium 141 mmol/L (135-145); Total Bilirubin 0.7 mg/dL (0.3-1.2); Total Protein 7.1 g/dL (6.2-8.2)
== END | disposition home or self-care (01) ==
LOC: LABWHC1 08:04
PROVIDERS: ATTEND Internal Medicine Endocrinology, Diabetes & Metabolism
DX: E27.40 Unspecified adrenocortical insufficiency (principal)
CPT/HCPCS: 36415; 80053; 82024; 82533

== ENCOUNTER → 2023-11-09 | Outpatient (CLI) | payer MEDICARE, BC ==
[2023-11-09 10:14] LABS: Basophils # (A) 0.03 X 10*3/uL (0.00-0.10); Basophils % (A) 0.3 %; Eosinophils # (A) 0.27 X 10*3/uL (0.04-0.35); HCT 46.3 % (39.6-50.0); HGB 15.4 g/dL (13.0-17.0); Lymphocytes # (A) 2.93 X 10*3/uL (0.90-5.00); Lymphocytes % (A) 33.1 %; MCH 30.6 pg (27.0-32.0); MCHC 33.3 g/dL (32.0-37.0); Mean Platelet Volume 11.4 FL (9.5-12.2); Monocytes # (A) 0.95 X 10*3/uL (0.20-1.00); Monocytes % (A) 10.7 %; NRBC Per 100 WBC 0 X 10*3/uL (0.00-0.01); Neutrophils # (A) 4.64 X 10*3/uL (1.80-7.70); Neutrophils % (A) 52.4 %; Platelet Count 303 X 10*3/uL (140-440); RBC 5.03 X 10*6/uL (4.40-5.60); RDW 14.2 % (11.5-14.5); WBC 8.86 X 10*3/uL (4.50-10.00)
[2023-11-09 10:43] LABS: Chloride 103 mmol/L (96-109); Chol/HDL Ratio 2.24 Ratio; Glucose 86 mg/dL (70-110); LDL Cholesterol,Calculated 82.9 mg/dL (0.0-131.0); Potassium 5.3 mmol/L (3.5-5.5); Sodium 142 mmol/L (135-145)
[2023-11-09 10:44] LABS: ALT 19 U/L (10-49); AST 28 U/L (14-35); Albumin 4.4 g/dL (3.8-4.9); Albumin/Globulin Ratio 1.69 Ratio (1.60-3.17); Alkaline Phosphatase 78 U/L (41-126); Calcium 9.3 mg/dL (8.7-10.3); Carbon Dioxide 28.6 mmol/L (21.6-31.8); Globulin 2.6 g/dL (1.6-3.3); Prostate Specific Antigen 2.26 ng/mL (0.000-4.500); T4, Free (Free Thyroxine) 1.21 ng/dL (0.80-1.80); Total Bilirubin 0.6 mg/dL (0.3-1.2)
== END | disposition home or self-care (01) ==
LOC: LABWHC1 07:15
PROVIDERS: ATTEND Internal Medicine Geriatric Medicine
DX: E27.40 Unspecified adrenocortical insufficiency (principal); E78.2 Mixed hyperlipidemia; N40.1 Benign prostatic hyperplasia with lower urinary tract symptoms
CPT/HCPCS: 36415; 80053; 80061; 83036; 84153; 84439; 84443; 85025